=== PATIENT | male | born 1940 | race Caucasian/White ===

== ENCOUNTER 2021-08-01 13:34 | Observation (INO) | payer MEDICARE ==
[~2021-08-01] VITALS: Ht 180.3 cm; Wt 110.0 kg
[2021-08-01] VITALS (10 sets, daily range): BP systolic 133–168; BP diastolic 58–82
--- NOTE | 2021-08-01 13:37 | NUR ---
PT BROUGHT TO ROOM PER W/C
[2021-08-01 14:11] LABS: HEMATOCRIT 33.7 % (39.0-50.0); HEMOGLOBIN 9.5 g/dl (14.0-18.0); IMMATURE GRANULOCYTES 0.1 % (0.0-5.0); MEAN CELL VOLUME 73.3 fL CALC (80.0-100.0); MEAN CORPUSCULAR HGB 20.7 pG CALC (26.0-32.0); MEAN CORPUSCULAR HGB CONC 28.2 g/dL CAL (32.0-36.0); NEUT# 4.37 thou/uL (1.82-7.42); RED BLOOD COUNT 4.6 mill/uL (4.70-6.10); RED CELL DISTRI WIDTH 18.1 % (11.5-15.5)
[2021-08-01 14:34] LABS: PROTHROMBIN TIME 10.3 SECONDS (9.0-12.5)
[2021-08-01 14:35] LABS: ALBUMIN 4.1 g/dL (3.2-5.0); ALKALINE PHOSPHATASE 73 u/l (38-126); ANION GAP 15 (6-22 (CALC)); BILIRUBIN, TOTAL 0.1 mg/dL (0.0-1.4); BUN 27 mg/dL (8-23); BUN/CREATININE RATIO 17 (12-20 (CALC)); CARBON DIOXIDE 24 mmol/l (22-30); CHLORIDE 104 mmol/l (95-108); CREATININE 1.6 mg/dL (0.7-1.3); GFR 42 ML/MIN (>=60 (CALC)); GFR FOR AFR.AMER. 51 ML/MIN (>=60 (CALC)); POTASSIUM 4.1 mmol/l (3.5-5.1); SGOT/AST 23 u/l (19-48); SODIUM 138 mmol/l (137-146); TOTAL PROTEIN 7.3 g/dL (6.3-8.2)
--- NOTE | 2021-08-01 14:47 | NUR ---
RETURNED FROM CT SCAN WITH PATIENT. ALERT AND ORIENTED. NO ACUTE DISTRESS. VSS. CONNECTED TO MONITOR. DECLINED FURTHER NEEDS AT THIS TIME.
--- NOTE | 2021-08-01 15:12 | NUR ---
Reassessment of patient completed. No distress noted.
--- NOTE | 2021-08-01 16:07 | NUR ---
Reassessment of patient completed. No distress noted.
--- NOTE | 2021-08-01 16:56 | NUR ---
Reassessment of patient completed. No distress noted.
[2021-08-01 17:00] LABS: URINE BILIRUBIN - DIPSTICK NEGATIVE (NEGATIVE); URINE BLOOD DIPSTICK NEGATIVE (NEGATIVE); URINE COLOR YELLOW; URINE GLUCOSE - DIPSTICK NEGATIVE (NEGATIVE); URINE KETONE NEGATIVE (NEGATIVE); URINE LEUK ESTERASE NEGATIVE (NEGATIVE); URINE PROTEIN - DIPSTICK NEGATIVE (NEG-TRACE); URINE SPECIFIC GRAVITY 1.015; URINE UROBILINOGEN - DIPSTICK 0.2 E.U./dL (0.2)
[2021-08-01 17:01] LABS: URINE NITRITE - DIPSTICK NEGATIVE (Negative)
--- NOTE | 2021-08-01 17:55 | NUR ---
Reassessment of patient completed. No distress noted.
--- NOTE | 2021-08-01 17:55 | NUR ---
FIRST ATTEMP TO CALL REPORT Leslie CRAIG
--- NOTE | 2021-08-01 18:44 | NUR ---
ADDITIONAL ATTEMPT TO CALL REPORT.
--- NOTE | 2021-08-01 19:01 | NUR ---
REPORT RECEIVED FROM WILLOW CRAIG.
--- NOTE | 2021-08-01 19:05 | NUR ---
DAVID FROM [facility] RETURNED CALL TO TAKE REPORT ON PATIENT. VERBALIZED UNDERSTANDING OF PATIENT STATUS COMMUNICATION. PATIENT ALERT AND ORIENTED AND ON TELE.
--- NOTE | 2021-08-01 19:05 | NUR ---
REPORT GIVEN TO Keila DENNEY RN.
--- NOTE | 2021-08-01 19:18 | NUR ---
PATIENT ADMITTED TO [facility] ROOM 279 VIA WC. AMBULATED SELF TO ROOM BED WITHOUT DIFFICULTY. ASSESSMENT COMPLETE. NO SIGNS OF DISTRESS NOTED. NO COMPLAINTS OF PAIN VOICED. NO SIGNS OF WEAKNESS NOTED DURING ASSESSMENT. ORIENTED PATIENT TO ROOM, CALL LIGHT AND SURROUNDINGS. FRESH WATER PROVIDED. CALL LIGHT AND BELONGINGS IN REACH.
[2021-08-02] VITALS: BP 112/53
--- NOTE | 2021-08-02 00:45 | NUR ---
PATIENT RESTING IN BED ON HIS RIGHT SIDE. NO COMPLAINTS OF PAIN OR DISCOMFORT NOTED. NO SIGNS OF DISTRESS. NO COMPLAINTS OF TINGLING IN HIS ARMS. CALL LIGHT AND BELONGINGS REMAIN IN REACH.
[2021-08-02 04:00] VITALS: BP 131/62
--- NOTE | 2021-08-02 04:10 | NUR ---
PATIENT RESTING ON HIS LEFT SIDE. NO SIGNS OF DISTRESS NOTED. NO SOGNS OF PAIN. CALL LIGHT AND BELONGINGS REMAIN IN PATIENTS REACH.
[2021-08-02 05:58] LABS: CHOLESTEROL HDL RATIO 4.7 (<4.4 (CALC))
--- NOTE | 2021-08-02 08:00 | NUR ---
PT AWAKE AND SITTING ON RECLINER UPON ENTERING ROOM. STATES NO PAIN AT THIS TIME. JUST A SLIGHT PRESSURE ON CHEST. ASSESSMENT AND VITALS ALLOWED AT THIS TIME. TELE MONITOR IN PLACE. CONTINOUS MONITORING PER ED. IV: 20G RAC FLUSHED WITH NO RESISTANCE. ON PHONE WITH IGNACIO FROM RADIOLOGY CANCELED MRI DUE TO PT HAVINF L PACEMAKER. FALL/SAFTEY PRECAUTION IN PLACE. CALL LIGHT WITHIN REACH.
[2021-08-02] MEDS ORDERED: ZESTRIL10 M1 PO (09:52)
[2021-08-02] MEDS ORDERED: HYDROCHLOROT25 MG PO (09:53)
[2021-08-02] MEDS ORDERED: LASIX 40 MG TAB40 MG PO (09:54)
[2021-08-02 09:55] VITALS: BP 134/71
[2021-08-02] MEDS ORDERED: POTASSIUM CHLO20 ME2 PO (09:55)
[2021-08-02] MEDS ORDERED: ASPIRIN EC LOW81 MG PO (09:56)
[2021-08-02] MEDS ORDERED: CLARITIN10 M2 PO (09:56)
[2021-08-02] MEDS ORDERED: [UNRECOGNIZED DRUG - OTHER] PO (10:09)
--- NOTE | 2021-08-02 12:00 | NUR ---
PT AMBULATING THROUGHOUT THE HALLS. STATES NO PAIN AT THIS TIME. BREATHING EVEN AND UNLABORED. FALL PRECAUTIONS IN PLACE. IV PATENT. TELE MONITOR IN PLACE.
[2021-08-02 13:28] VITALS: BP 134/71
--- NOTE | 2021-08-02 13:40 | NUR ---
Discharge instructions given. Patient verbalizes understanding of same. Discharged in stable condition via Wheelchair to Home with staff. All belongings sent with pt. IV 20G RAC REMOVED CATHETER FULLY INTACT. TELE MONITOR REMOVED. PT DENIED WC WANTED TO AMBULATE BY FOOT. ACCOMPANIED BY [employer] FLORIST
== END 2021-08-02 13:40 | disposition home or self-care (01) ==
LOC: EDSEX 13:34 → ED 13:34 → ED-I 14:51 → ED 14:51 → ED-I 16:11 → ED 17:24 → MS2 17:25
PROVIDERS: Family Medicine; ADMIT Internal Medicine; ATTEND Internal Medicine
DX: R20.0 Anesthesia of skin (principal); R20.2 Paresthesia of skin; R42 Dizziness and giddiness; R07.9 Chest pain, unspecified; I11.0 Hypertensive heart disease with heart failure; I50.9 Heart failure, unspecified; I25.10 Atherosclerotic heart disease of native coronary artery without angina pectoris; Z95.0 Presence of cardiac pacemaker; Z20.822 Contact with and (suspected) exposure to COVID-19
CPT/HCPCS: Q9967